=== PATIENT | female | born 1975 ===

== ENCOUNTER 2018-03-11 19:14 | Emergency (ER) | payer SELFPAY ==
[2018-03-11 19:28] VITALS: RESP 16
[2018-03-11 20:29] LABS: BASO % 0.5 % (0.0-2.0); EOS # 0.2 K/uL (0.0-0.7); EOS % 2.7 % (0.0-4.0); HEMOGLOBIN 12.6 g/dL (11.0-16.0); LYMPH # 2.2 K/uL (1.0-4.3); LYMPH % 36.7 % (20.0-40.0); MEAN CELL VOLUME 83.3 fL (81.0-99.0); MEAN CORPUSCULAR HEMOGLOBIN 28.4 pg (27.0-31.0); MEAN CORPUSCULAR HGB CONC 34.1 g/dL (33.0-37.0); MONO # 0.3 K/uL (0.0-0.8); MONO % 5.2 % (0.0-10.0); NEUT # 3.3 K/uL (1.8-7.0); NEUT % 54.9 % (50.0-75.0); RBC 4.44 Mil/uL (3.80-5.20); RED CELL DISTRIBUTION WIDTH 13.3 % (11.5-14.5); WHITE BLOOD COUNT 6.1 K/uL (4.8-10.8)
[2018-03-11 20:30] LABS: HCG,QUALITATIVE URINE NEGATIVE (NEGATIVE)
[2018-03-11 20:33] LABS: SQUAMOUS EPITHIAL 3 /hpf (0-5); URINE BILIRUBIN NEGATIVE (NEGATIVE); URINE BLOOD NEGATIVE (NEGATIVE); URINE CLARITY Clear (Clear); URINE COLOR Yellow (YELLOW); URINE GLUCOSE (UA) NORMAL (Normal); URINE LEUKOCYTE ESTERASE 1+ Leu/uL (Negative); URINE PROTEIN NEGATIVE (NEGATIVE); URINE UROBILINOGEN NORMAL mg/dL (0.2-1.0)
[2018-03-11] MEDS ORDERED: Sodium Chloride 0.9% 1,000 ML IV ONE (20:36)
[2018-03-11 20:44] LABS: ALB/GLOB RATIO 1.3 (1.0-2.1); ALBUMIN 4.2 g/dL (3.5-5.0); ALT/SGPT 31 U/L (9-52); AST/SGOT 36 U/L (14-36); BLOOD UREA NITROGEN 17 mg/dL (7-17); GFR AFRICAN-AMERICAN > 60; GFR NON-AFRICAN AMERICAN > 60
[2018-03-11] MEDS ORDERED: Sodium Chloride 0.9% 1,000 ML ONE (20:44)
--- NOTE | 2018-03-11 21:16 | C.PDOC ---
History Of Present Illness 43 y/o female presents to the ER complaining of dull headache, occasional sore throat, malaise, and digitally reproducible chest discomfort which has been present for the past 2 weeks. Patient states that she also has occasional arm parasthesia when she sleeps with her head to the side. Patient is also complaining of discoloration to the bottom of her feet. Of note, patient immigrated from [place] 2 years ago. She has been evaluated in [facility] for thyroid function but she does not understand why. She notes that she is taking Synthroid 50 mg. Time Seen by Provider: 03/11/18 20:27 Chief Complaint (Nursing): Headache History Per: Patient History/Exam Limitations: no limitations Onset/Duration Of Symptoms: Days Current Symptoms Are (Timing): Still Present Severity: Moderate Past Medical History Reviewed: Historical Data, Nursing Documentation, Vital Signs Vital Signs: Last Vital Signs Temp 98.1 F 03/11/18 21:42 Pulse 78 03/11/18 21:42 Resp 16 03/11/18 21:42 BP 112/72 03/11/18 21:42 Pulse Ox 98 03/11/18 21:42 - Medical History PMH: Asthma Surgical History: No Surg Hx Family History: States: No Known Family Hx - Social History Hx Alcohol Use: No Hx Substance Use: No Review Of Systems Except As Marked, All Systems Reviewed And Found Negative. Constitutional: Positive for: Malaise. Negative for: Fever, Chills ENT: Positive for: Throat Pain Cardiovascular: Positive for: Other (chest discomfort) Neurological: Positive for: Headache Physical Exam - Physical Exam Appears: Non-toxic, No Acute Distress, Other (obese female) Skin: Normal Color, Warm, Dry Head: Atraumatic, Normacephalic Eye(s): bilateral: Normal Inspection Ear(s): Bilateral: Normal Nose: Normal Oral Mucosa: Moist Throat: Normal, No Erythema, No Exudate Neck: Supple Chest: Symmetrical, Tenderness (digitally reproducible tenderness to the left parasternal border ( T3- T4)), Other (no rash) Cardiovascular: Rhythm Regular Respiratory: Normal Breath Sounds, No Rales, No Rhonchi, No Wheezing Gastrointestinal/Abdominal: Normal Exam, Soft, No Tenderness, No Guarding, No Rebound Extremity: Normal ROM Neurological/Psych: Oriented x3, Normal Speech ED Course And Treatment - Laboratory Results Result Diagrams: 03/11/18 20:19 03/11/18 20:19 Lab Interpretation: Normal (tsh 2.83 normal, UA neg. tox neg.) ECG: Interpreted By Me ECG Rhythm: Sinus Rhythm ECG Interpretation: Normal Rate From EC O2 Sat by Pulse Oximetry: 99 (RA) Pulse Ox Interpretation: Normal - Radiology CXR: Interpreted by Me CXR Interpretation: Yes: No Acute Disease Progress Note: ice pack to L chest, toradol, IVF Medical Decision Making Medical Decision Making: Plan: --Labs --EKG --CXR --UA --Toradol IV --IV Fluids many vague complaints mild L parasternal costochondritis malaise: no anemia/infection no clinical evidence to support Malaise: normal TSH 2.83, again normal as c/w 10/24 Unclear why pt on Synthroid 50 mcg (very low dose) Disposition Doctor Will See Patient In The: Office Counseled Patient/Family Regarding: Studies Performed, Diagnosis - Disposition Disposition: HOME/ ROUTINE Disposition Time: 21:49 Condition: GOOD Forms: [employer] (Belarusian) - Clinical Impression Clinical Impression: Chest wall discomfort, Malaise and fatigue - Scribe Statement The provider has reviewed the documentation as recorded by the Shadi Oliver Provider Attestation: All medical record entries made by the Shadi were at my direction and personally dictated by me. I have reviewed the chart and agree that the record accurately reflects my personal performance of the history, physical exam, medical decision making, and the department course for this patient. I have also personally directed, reviewed, and agree with the discharge instructions and disposition.
[2018-03-11 21:30] LABS: BARBITURATES, UR NEGATIVE (NEGATIVE); BENZODIAZEPINES, UR NEGATIVE (NEGATIVE); OPIATES, UR NEGATIVE (NEGATIVE); PHENCYCLIDINE, UR NEGATIVE (NEGATIVE)
[2018-03-11 21:42] VITALS: BP 112/72; PULSE 78; TEMP 98.1
[2018-03-11 21:50] VITALS: O2SAT 99
--- NOTE | 2018-03-12 08:41 | RAD ---
HISTORY: COMPARISON: 03/11/2018 TECHNIQUE: Chest PA and lateral FINDINGS: LINES AND TUBES: None. LUNG AND PLEURA: The lungs are well inflated and clear. No pleural effusion or pneumothorax. HEART AND MEDIASTINUM: The heart is not enlarged. The hilar and mediastinal contours are within normal limits. SKELETAL STRUCTURES: The bony structures are within normal limits for the patient's age. VISUALIZED UPPER ABDOMEN: Normal. OTHER FINDINGS: None. IMPRESSION: No active pulmonary disease.
--- NOTE | 2018-03-16 12:48 | CARD ---
APPROVED REPORT Date of service: 03/11/2018 EKG Measurement Heart [id number] <Conclusion> Normal sinus rhythm Normal ECG
== END 2018-03-11 22:04 | disposition home or self-care (01) ==
LOC: C.ER 19:14
DX: R07.89 Other chest pain (principal); R53.83 Other fatigue; R53.81 Other malaise
CPT/HCPCS: 71046; 80053; 81001; 83036; 84443; 84484; 84703; 85025; 96374; 99285; G0480; J1885; J7030